=== PATIENT | male | born 1950 | race Hispanic/Latino ===

== ENCOUNTER 2022-02-20 21:52 | Emergency (ER) | payer OTHER ==
[~2022-02-20] VITALS: Ht 167.6 cm; Wt 63.5 kg
[2022-02-20] MEDS ORDERED: DIPHENHYDRAMINE HCL 25 MG CAPSULE PO ONE (23:00)
[2022-02-21] MEDS ORDERED: DiphenhydrAMINE HCL 50 MG/ML VIAL IV STA (02:56)
[2022-02-21] MEDS ORDERED: SOLU-MEDROL 125MG VIAL IVP STA (02:56)
[2022-02-21 06:09] VITALS: BP 127/77
[2022-02-21] MEDS ORDERED: DIPH25 PO (06:53)
== END 2022-02-21 07:08 | disposition home or self-care (01) ==
LOC: EDH 21:52
DX: T63.441A Toxic effect of venom of bees, accidental (unintentional), initial encounter (principal); F10.20 Alcohol dependence, uncomplicated; Z60.2 Problems related to living alone; Y92.89 Other specified places as the place of occurrence of the external cause; Y90.9 Presence of alcohol in blood, level not specified
CPT/HCPCS: 96374; 96375; 99284; J1200; J2930

== ENCOUNTER → 2023-05-13 | Outpatient (CLI) | payer OTHER ==
[~2023-05-13] MED LIST: DIPH-1242 PO
== END | disposition home or self-care (01) ==
LOC: RAH 10:25
PROVIDERS: ATTEND Internal Medicine
DX: K76.89 Other specified diseases of liver (principal)
CPT/HCPCS: 76700

== ENCOUNTER → 2024-12-21 | Outpatient (CLI) | payer OTHER ==
--- NOTE | 2024-12-21 17:14 | HMCIMG ---
LUMBAR SPINE 2-3VWS HISTORY: Status post fall COMPARISON: None FINDINGS: 3 images of lumbar spine were obtained. There is levoscoliosis of lumbar spine versus poor positioning. Grade 1 anterolisthesis is seen at the L5-S1 level. There may be bilateral L5 pars defects. There is straightening of normal lordotic curvature which may be related to muscle spasm or positioning. No loss of vertebral height is seen. No fracture or dislocation is seen. Degenerative changes are seen. IMPRESSION: 1. Findings as described above.
--- NOTE | 2024-12-21 17:14 | HMCIMG ---
THORACIC SPINE 3VWS HISTORY: Status post fall COMPARISON: None FINDINGS: 3 images of the thoracic spine were obtained. There is scoliosis. There is straightening of normal lordotic curvature which may be related to muscle spasm or positioning. No loss of vertebral height is seen. No fracture or dislocation is seen. Degenerative changes are seen. IMPRESSION: 1. No fracture is seen. Scoliosis. Degenerative changes.
--- NOTE | 2024-12-21 19:11 | HMCIMG ---
RIBS UNI RT W PA CHEST 3+ VWS REASON: Fall injury, pain to RT posterior rib cage. COMPARISON: None TECHNIQUE: Frontal projection of the chest was obtained. 3 images of the right ribs were obtained. FINDINGS: No acute pulmonary infiltrates is seen. The heart is not enlarged. No acute displaced fracture is seen. IMPRESSION: Findings as discussed above.
== END | disposition home or self-care (01) ==
LOC: RAH 15:02
PROVIDERS: ATTEND Internal Medicine
DX: S30.0XXA Contusion of lower back and pelvis, initial encounter (principal); M47.814 Spondylosis without myelopathy or radiculopathy, thoracic region; M47.816 Spondylosis without myelopathy or radiculopathy, lumbar region; M43.17 Spondylolisthesis, lumbosacral region; M41.86 Other forms of scoliosis, lumbar region; M41.84 Other forms of scoliosis, thoracic region; M54.50 Low back pain, unspecified; R07.81 Pleurodynia; X58.XXXA Exposure to other specified factors, initial encounter; Y93.89 Activity, other specified; Y92.89 Other specified places as the place of occurrence of the external cause; Y99.8 Other external cause status
CPT/HCPCS: 71101; 72072; 72100

== ENCOUNTER → 2025-02-09 | Outpatient (CLI) | payer OTHER, MEDICARE ==
--- NOTE | 2025-02-10 12:44 | HMCIMG ---
NM GASTRIC EMPTYING STUDY REASON: EARLY SATIETY, NAUSEAM ABD DISTENSION. COMPARISON: None TECHNIQUE: Nuclear gastric emptying study was performed with 1.5 mCi of technetium sulfa colloid with scrambled eggs through oral route. FINDINGS: T half of gastric emptying is 39 minutes. IMPRESSION: Normal gastric emptying with T half of 39 minutes.
== END | disposition home or self-care (01) ==
LOC: RAH 10:21
PROVIDERS: ATTEND Internal Medicine Gastroenterology
DX: K29.40 Chronic atrophic gastritis without bleeding (principal); R68.81 Early satiety; R11.0 Nausea; R14.0 Abdominal distension (gaseous); Z79.899 Other long term (current) drug therapy
CPT/HCPCS: 78264; 82607; 82746; 36415; A9541

== ENCOUNTER 2025-02-24 21:56 | Observation (INO) | payer OTHER, MEDICARE ==
[~2025-02-24] VITALS: Ht 152.4 cm; Wt 55.0 kg
[2025-02-24] MEDS: OCTYL 2-CYANOACRYLATE 1 EACH TP ONE
[2025-02-24] MEDS: teTANUS/diphthERIA TOXOID [ADULT] 0.5 ML VIAL IM ONE (22:45)
[2025-02-24] MEDS: LIDOCAINE HCL 1% 20 ML VIAL INJ ONE (23:12)
--- NOTE | 2025-02-24 23:18 | NUR ---
Lily lozaradha in ED - 02/24/25 at 2345 by LOUISE LIDOCAINE ADMINISTERED FOR DIGITAL BLOCK TO R [address] RD FINGER BY IFEOMA JEFFERSON. FINGER REDUCED AND SUTURES APPLIED BY IFEOMA JEFFERSON. PATIENT TOLERATED PROCEDURES WELL. LACERATION COVERED WITH NONADHERENT GAUZE FINGER SPLINT APPLIED AND WRAPPED WITH KERLIX
--- NOTE | 2025-02-24 23:45 | NUR ---
LIDOCAINE ADMINISTERED TO R 3RD FINGER BY IFEOMA JEFFERSON FOR REDUCTION OF FINGER DISLOCATION. PATIENT TOLERATED WELL. FINGER COVERED WITH NONADHERENT GAUZE, FINGER SPLINT APPLIED, VOLAR SPLINT APPLIED. PATIENT TOLERATED WELL
[2025-02-24] MEDS: ceFAZolin SODIUM 2 GM VIAL IVPB ONE (23:53)
[2025-02-25] VITALS (31 sets, daily range): BP systolic 111–162; BP diastolic 69–92; PULSE 60–107; RESP 15–21; TEMP 97.1–98.7; O2SAT 96
[2025-02-25] MEDS: OCTYL 2-CYANOACRYLATE 1 EACH TP ONE (00:15)
[2025-02-25 00:16] LABS: CREATININE 0.6 mg/dL (0.5-1.3); POTASSIUM 3.8 mmol/L (3.5-5.1)
[2025-02-25 00:44] LABS: BASOPHILS # (AUTO) 0.03 K/uL (0.00-0.20); BASOPHILS % (AUTO) 0.5 % (0.0-5.0); EOSINOPHILS # (AUTO) 0.08 K/uL (0.00-0.70); EOSINOPHILS % (AUTO) 1.3 % (0.0-8.0); HEMATOCRIT 39.2 % (42-54); IMMATURE GRANULOCYTE ABSOLUTE 0.01 K/uL (0-1); LYMPHOCYTES # (AUTO) 0.9 K/uL (1.0-4.8); MEAN CORPUSCULAR HEMOGLOBIN 30.8 pg (27.0-33.0); MEAN CORPUSCULAR HGB CONC 33.7 g/dL (32.0-36.0); MEAN CORPUSCULAR VOLUME 91.4 fL (79-99); MONOCYTES # (AUTO) 0.4 K/uL (0.1-1.0); MONOCYTES % (AUTO) 6.9 % (3.0-13.0); NEUTROPHILS # (AUTO) 4.7 K/uL (1.8-7.7); NEUTROPHILS % (AUTO) 76.1 % (40.0-77.0); PLATELET COUNT (AUTO) 259 K/uL (130-400); RED BLOOD CELL COUNT(AUTO) 4.29 MIL/uL (4.50-6.20); RED CELL DISTRIBUTION WIDTH 12.9 % (11.0-15.5); WHITE BLOOD COUNT (AUTO) 6.2 K/uL (4.8-10.8)
--- NOTE | 2025-02-25 00:46 | ERN ---
General Chief Complaint: Finger Injury Stated Complaint: RIGHT FINGER INJURY Time Seen by MD: 22:00 Time Seen by Midlevel: 22:00 Source: patient History of Present Illness Initial Comments Is a 74-year-old male presenting to the emergency department for evaluation following a right 2nd digit injury. The patient states he was working on a car when the fan accidentally cut his right 2nd digit. Patient immediately reported to the ER for further evaluation. Patient is not up-to-date with tetanus vaccination. Allergies: Coded Allergies: No Known Drug Allergies (Unverified Allergy, Unknown, 06/13/23) Home Meds Active Scripts Diphenhydramine HCl (Benadryl) 25 Mg Cap, 25 MG PO QIDP for 10 Days, #40 CAP Prov:ELVIS PALACIOS MD 02/21/22 Past Medical History Past Medical History: Hypertension, Prostatitis, Other Medical History Other: THYROID DISEASE Past Surgical History: Appendectomy, Other Surgical History Other: HERNIA REPAIR Social History Social History: ETOH, Lives alone ROS Dictation CONSTITUTIONAL: Negative except for HPI HEAD/FACE: Negative except for HPI EENT: Negative except for HPI RESPIRATORY: Negative except for HPI GASTROINTESTINAL/ABDOMINAL: Negative except for HPI GENITOURINARY: Negative except for HPI MUSCULOSKELETAL: Negative except for HPI INTEGUMENTARY: Negative except for HPI NEUROLOGICAL/PSYCH: Negative except for HPI HEMATOLOGIC/LYMPHATIC: Negative except for HPI All Systems Negative, Except as noted above. 13 point review of systems assessed and all negative except for above. Physical Exam Physical Exam Dictation PHYSICAL EXAM: GENERAL: alert,, awake oriented x 3 HEENT: EOMI, Sclera non icteric, moist mucosa NECK: Supple, no JVD, trachea midline LUNGS: Clear breath sounds bilaterally. No wheezes HEART: Regular rate and rhythm. Normal S1 and S2, without murmurs ABD: Abdomen soft, nontender. Bowel sounds present EXT: There was a laceration to the right 2nd digit overlying the PIP joint, there is dislocation of the PIP joint with joint exposure NEURO: Alert and oriented to person, follows commands Results Laboratory and Microbiology Lab and Micro Result Laboratory Tests Test 02/24/25 00:02 Sodium Level 138 mmol/L (136-145) Potassium Level 3.8 mmol/L (3.5-5.1) Chloride Level 103 mmol/L (101-111) Carbon Dioxide Level 27 mmol/L (21-32) Blood Urea Nitrogen 11 mg/dL (7-18) Creatinine 0.6 mg/dL (0.5-1.3) Glomerular Filtration Rate Calc 101 mL/min (>90) Random Glucose 89 mg/dL (70-105) Total Calcium 9.1 mg/dL (8.5-10.1) Labs Reviewed?: Yes MDM MDM: Is a 74-year-old male presenting to the emergency department for evaluation following a right 2nd digit injury. The patient states he was working on a car when the fan accidentally cut his right 2nd digit. Patient immediately reported to the ER for further evaluation. Patient is not up-to-date with tetanus vaccination. On physical examination there was an open dislocation of the right 2nd digit at the PIP joint, the distal digit is flexed at a 90 degree angle. An x-ray was performed which reveals a dislocation of the right PIP joint of the right 2nd digit. The area was anesthetized with 1% lidocaine without epi. The digit was reduced and a repeat x-ray was performed which showed normal alignment but revealed an underlying avulsion fracture of the PIP joint. Orthopedic surgery was consulted and recommends admission for surgery in the morning. Wants patient NPO after midnight. Differential diagnosis: Open fracture, tendon laceration, finger dislocation Rationale: Tests considered and ordered secondary to shared decision making include: Previous outside records reviewed: Old ER visits. Risk of complication and/or morbidity or mortality of patient management: None Medications-Per medication reconciliation Need for hospitalization: Patient does meet criteria for hospitalization. Need for emergency major/minor surgery: No There are no social concerns with this patient. Prescription drug management Prescriptions will include symptomatic care Patient's prior external medical records from other ER visits were reviewed by me as indicated. Prior testing and results from previous visits were reviewed. Prior tests were taken into account with medical decision making and resource utilization, independent historian/historians were used to obtain complete medical history. I independently interpreted the test that were performed, results were reviewed by me and considered findings on radiology if ordered. Medical management and examination interpretation discussions were had by me with other qualified healthcare professionals as indicated for the patient's care. ED Course Orders Procedure Category Date Status Time Tetanus,Diphtheria PHA 02/24/25 Complete Tox [Adult] (Diphther 22:30 Finger(S) 2+Vws Rt RAD 02/24/25 Taken 22:02 Laceration Tray Set CPOE 02/24/25 Transmitted Up (Er) 22:57 Lidocaine Hcl 1% 20ml PHA 02/24/25 Complete Vial (Lidocaine Hc 23:00 Finger(S) 2+Vws Rt RAD 02/24/25 Taken 23:23 Dermabond (Dermabond) PHA 02/24/25 Complete 00:00 Cbc With Differential LAB 02/24/25 In Process 23:45 Basic Metabolic Panel LAB 02/24/25 Complete 23:45 Cefazolin Sodium PHA 02/25/25 Complete (Ancef) 00:01 Orthopedic Surgery CONPHYSVC 02/24/25 Transmitted Consult 23:45 Npo After Midnight CARLA 02/24/25 Transmitted 23:45 Dermabond (Dermabond) PHA 02/25/25 In Process 00:30 Current Medications Medications (Trade) Dose Ordered Sig/Patrica Route PRN Reason Start Time Stop Time Status Last Admin Dose Admin Cefazolin Sodium (Ancef) 2 gm ONCE ONCE IVPB 02/25/25 00:01 02/25/25 00:02 DC 02/24/25 23:53 Lidocaine HCl (Lidocaine HCl 1% 20ml Vial) ONCE ONCE INJ 02/24/25 23:00 02/24/25 23:01 DC Octyl Cyanoacrylate (Dermabond) 1 each ONCE ONCE TP 02/24/25 00:00 02/24/25 23:47 DC Octyl Cyanoacrylate (Dermabond) 1 each ONCE ONCE TP 02/25/25 00:30 02/25/25 00:31 02/25/25 00:15 Tetanus/ Diphtheria Toxoids Adsorbed (DiphthERIA-teTANUS TOXOID [ADULT]/ DECAVAC) 0.5 ml ONCE ONCE IM 02/24/25 22:30 02/24/25 22:31 DC 02/24/25 22:45 Vital Signs Date Time Temp Pulse Resp B/P (MAP) Pulse Ox O2 Delivery O2 Flow Rate FiO2 02/24/25 21:58 98.4 69 18 126/77 97 Room Air 0 DX & DISP Disposition: Inpatient Decision to Admit Date: Feb 25, 2025 Decision to Admit Time: 00:46 Departure Impression: Primary Impression: Extensor tendon laceration of right hand with open wound Condition: Stable Referrals: LETICIA DISLA MD (PCP) I have reviewed the case, and I agree with, Diagnosis and Plan I performed the substantive portion of the visit. I have reviewed and personally made and approve the management plan that is documented in the note by myself or the HIGINIO. I acknowledge for responsibility for the patient's management plan. JOSE MARTINS Feb 25, 2025 00:46
[2025-02-25] MEDS: morPHINE 2 MG SYG IVP ONE (01:58)
[2025-02-25] MEDS ORDERED: ondanSETRON 4MG INJ IV PRN (05:00)
[2025-02-25 07:41] LABS: BASOPHILS # (AUTO) 0.05 K/uL (0.00-0.20); BASOPHILS % (AUTO) 0.7 % (0.0-5.0); EOSINOPHILS # (AUTO) 0.09 K/uL (0.00-0.70); EOSINOPHILS % (AUTO) 1.2 % (0.0-8.0); HEMATOCRIT 38.7 % (42-54); IMMATURE GRANULOCYTE ABSOLUTE 0.03 K/uL (0-1); LYMPHOCYTES # (AUTO) 1.2 K/uL (1.0-4.8); LYMPHOCYTES % (AUTO) 15.9 % (21.0-51.0); MEAN CORPUSCULAR HEMOGLOBIN 30.8 pg (27.0-33.0); MEAN CORPUSCULAR HGB CONC 34.1 g/dL (32.0-36.0); MEAN CORPUSCULAR VOLUME 90.4 fL (79-99); MONOCYTES # (AUTO) 0.6 K/uL (0.1-1.0); MONOCYTES % (AUTO) 7.5 % (3.0-13.0); NEUTROPHILS # (AUTO) 5.6 K/uL (1.8-7.7); NEUTROPHILS % (AUTO) 74.3 % (40.0-77.0); PLATELET COUNT (AUTO) 232 K/uL (130-400); RED BLOOD CELL COUNT(AUTO) 4.28 MIL/uL (4.50-6.20); RED CELL DISTRIBUTION WIDTH 12.9 % (11.0-15.5); WHITE BLOOD COUNT (AUTO) 7.6 K/uL (4.8-10.8)
[2025-02-25 07:50] LABS: INR 1.01 (0.85-1.15); PROTHROMBIN TIME 10.7 SEC (9.6-11.6)
[2025-02-25 07:51] LABS: PARTIAL THROMBOPLASTIN TIME 30.2 SEC (26.3-35.5)
[2025-02-25 07:53] LABS: ALBUMIN 3.6 g/dL (3.5-5.0); BILIRUBIN,TOTAL 0.6 mg/dL (0.2-1.0); CREATININE 0.6 mg/dL (0.5-1.3); MAGNESIUM 1.9 mg/dL (1.80-2.40); TOTAL PROTEIN, SERUM 6.9 g/dL (6.0-8.3)
[2025-02-25] MEDS ORDERED: PoTASSium chloRIDE 20MEQ/100ML 100 ML IV PRN (08:30)
[2025-02-25] MEDS ORDERED: LACTULOSE 20 GM/30 ML UDCUP PO PRN (08:30)
[2025-02-25] MEDS ORDERED: PoTASSium chloRIDE 10MEQ/100ML 100 ML IV PRN (08:30)
[2025-02-25] MEDS ORDERED: hydrALAZine 20MG/ML VIAL IV PRN (08:30)
[2025-02-25] MEDS ORDERED: PoTASSium chl 10% ELIXIR 20MEQ 20 MEQ/15 ML UDCUP PO PRN (08:30)
[2025-02-25] MEDS ORDERED: PoTASSium chloRIDE 20MEQ ER 20 MEQ ERTAB PO PRN (08:30)
[2025-02-25] MEDS ORDERED: acetaMINOPHEN 325 MG TAB PO PRN (08:30)
--- NOTE | 2025-02-25 08:38 | HP ---
[facility] HISTORY AND PHYSICAL Date of Service: Feb 25, 2025 Time of Service: 08:27 HISTORY OF PRESENT ILLNESS: [ ] Admission date: PCP: Prateek Shore MD chief complaint: right finger injury This is a 74-year-old male that presents in ER with chief complaints of right finger pain secondary to injury. Apparently patient was fixing his automobile when his finger accidently tonch the car fan and cut his finger. He came straight to ER for evaluation and treatment. X-rays were done dislocation of the right PIP and avulsion fracture of the PIP joint. POA Vice President Payer was notified by ER physician we will see patient later on today patient is kept NPO patient received a dose of tetanus in Ancef IV The patient was seen in room 425 : Fully awake alert oriented x3. patient has a finger splint. No drainage noted on trend we will wait for surgeon recommendations patient denied chest pain or shortness for breath REVIEW OF SYSTEMS CONSTITUTIONAL: Denies fevers, chills, or night sweats. No unintentional weight loss reported. NEUROLOGICAL: Denies headache, amaurosis fugax, motor weakness, sensory deficit, vertigo/spinning sensation, gait abnormalities, or tremors. ENT: No hearing loss, otalgia, otorrhea, rhinitis, rhinorrhea, hoarseness, or sore throat. CARDIOVASCULAR: Denies any exertional angina, dyspnea on exertion, orthopnea, paroxysmal nocturnal dyspnea, palpitations, life-threatening arrhythmias, claudication. PULMONARY: Denies any shortness of breath, cough, phlegm/sputum, hemoptysis, pleuritic chest pain. SLEEP: Denies morning headaches, daytime somnolence or napping. Denies difficul ty falling asleep, staying asleep, waking from sleep. Denies knowledge of snoring. GASTROINTESTINAL: Denies any type of dysphagia to either liquids or solids. Denies nausea, vomiting, pyrosis, early satiety, abdominal pain, diarrhea, constipation, or changes in stool consistency or caliber. Denies coffee-ground emesis, hematemesis, hematochezia, or melanotic stools. GENITOURINARY: Denies frequency, urgency, nocturia, hematuria or incontinence (Storage/Irritative symptoms.) Low urinary stream, straining to void, urinary intermittency or hesitancy, splitting of the voiding stream, terminal dribbling. ENDOCRINOLOGIC: Denies polyuria, polydipsia, polyphagia or heat/cold intole rances. HEMATOLOGIC: Denies thrombophilia/previous clots, or coagulopathy/bleeding disorders. ONCOLOGIC: Denies personal history of malignancy. DERMATOLOGIC: Denies rashes or pruritus. PSYCHIATRIC: Denies any suicidal or homicidal ideation. Denies hallucinations. PAST MEDICAL HISTORY: [ ]Hypertension thyroid disease PAST SURGICAL HISTORY: [ ] Hernia repair, appendectomy PAST SOCIAL HISTORY: [ ] Drinks alcohol occasionally lives alone FAMILY HISTORY: [ ] Noncontributory Coded Allergies: No Known Drug Allergies (Unverified Allergy, Unknown, 06/13/23) PHYSICAL EXAM GENERAL APPEARANCE: The patient is awake, alert, and oriented, in no acute cardiopulmonary distress. NEUROLOGICAL: Cranial nerves II-XII grossly intact. Motor is 5/5 in bilateral upper and lower extremities proximal to distal. No sensory deficits. HEENT: Face is symmetric. Pupils are equal and reactive. Extraocular movements are intact. NECK: Supple. No JVD. No thyromegaly. No submental, submandibular, pre- /postauricular, occipital or supraclavicular lymphadenopathy. CHEST: Normal chest expansion. No Telemetry. LUNGS: Absence of any rales, rhonchi or any wheezing. CARDIOVASCULAR: Regular. S1 and S2 normal. No appreciable rubs, murmurs or gallops. ABDOMEN: Soft, nontender, and nondistended. There is no rebound, voluntary guarding, or rigidity. : Deferred. No Beaver. EXTREMITIES: Non-edematous and not cyanotic. No clubbing. Good capillary refill. right hand with splint: second digit with splint. and bulging dressing SKIN: No skin breakdown. Vital Sign (Last 24 Hours) 02/25/25 02/25/25 02/25/25 06:00 06:46 08:22 Temp 98.8 Pulse 74 Resp 16 B/P (MAP) 148/83 Pulse Ox 99 O2 Delivery Room Air O2 Flow Rate 0 FiO2 21 LABS: Laboratory: Test 02/25/25 07:30 Range/Units White Blood Count 7.6 4.8-10.8 K/uL Red Blood Count 4.28 L 4.50-6.20 MIL/uL Hemoglobin 13.2 L 14.0-18.0 g/dL Hematocrit 38.7 L 42-54 % Mean Corpuscular Volume 90.4 79-99 fL Mean Corpuscular Hemoglobin 30.8 27.0-33.0 pg Mean Corpuscular Hemoglobin Concent 34.1 32.0-36.0 g/dL Red Cell Distribution Width 12.9 11.0-15.5 % Platelet Count 232 130-400 K/uL Mean Platelet Volume 9.5 7.5-10.5 fL Immature Granulocyte % (Auto) 0.4 0-1 % Neutrophils (%) (Auto) 74.3 40.0-77.0 % Lymphocytes (%) (Auto) 15.9 L 21.0-51.0 % Monocytes (%) (Auto) 7.5 3.0-13.0 % Eosinophils (%) (Auto) 1.2 0.0-8.0 % Basophils (%) (Auto) 0.7 0.0-5.0 % Neutrophils # (Auto) 5.6 1.8-7.7 K/uL Lymphocytes # (Auto) 1.2 1.0-4.8 K/uL Monocytes # (Auto) 0.6 0.1-1.0 K/uL Eosinophils # (Auto) 0.09 0.00-0.70 K/uL Basophils # (Auto) 0.05 0.00-0.20 K/uL Absolute Immature Granulocyte (auto 0.03 0-1 K/uL Nucleated Red Blood Cells 0.0 0.0-0.19 % Prothrombin Time 10.7 9.6-11.6 SEC Prothromb Time International Ratio 1.01 0.85-1.15 Activated Partial Thromboplast Time 30.2 26.3-35.5 SEC Sodium Level 137 136-145 mmol/L Potassium Level 4.0 3.5-5.1 mmol/L Chloride Level 104 101-111 mmol/L Carbon Dioxide Level 28 21-32 mmol/L Blood Urea Nitrogen 11 7-18 mg/dL Creatinine 0.6 0.5-1.3 mg/dL Glomerular Filtration Rate Calc 101 >90 mL/min Random Glucose 75 70-105 mg/dL Total Calcium 8.8 8.5-10.1 mg/dL Magnesium Level 1.90 1.80-2.40 mg/dL Total Bilirubin 0.6 0.2-1.0 mg/dL Aspartate Amino Transf (AST/SGOT) 16 10-37 U/L Alanine Aminotransferase (ALT/SGPT) 19 12-78 U/L Alkaline Phosphatase 63 50-136 U/L Total Protein 6.9 6.0-8.3 g/dL Albumin 3.6 3.5-5.0 g/dL Current Medications Medications (Trade) Dose Ordered Sig/Patrica Route PRN Reason Start Time Stop Time Status Last Admin Dose Admin Cefazolin Sodium (ANCEF 1 gm vial) 1 gm BID IVPB 02/25/25 09:00 03/07/25 08:59 Cefazolin Sodium 1 gm/Sodium Chloride 50 ml @ 100 mls/hr BID IV 02/25/25 09:00 02/25/25 05:08 DC Famotidine (Pepcid 20mg Vial) 20 mg BID IV 02/25/25 09:00 03/27/25 08:59 Ondansetron HCl (zoFRAN 4MG INJ) 4 mg Q6H PRN IV NAUSEA/VOMITING 02/25/25 05:00 03/27/25 04:59 DIAGNOSTICS / RADIOLOGY: [ ] ASSESSMENT: Right finger injury POA laceration finger 2nd digit POA dislocation of the right PIP joint of the right 2nd digit. POA right 2nd digit avulsion fracture of the PIP joint. POA PLAN: [ ] Admit: Medical-surgical floor condition: Fair Status: Full code IVF: NS at 75 mL/hour Consultants orthopedic surgery Diet NPO Antibiotics: Cefazolin1 g twice a day procedure: possible surgery today: right 2nd digit: dislocation of the right PIP joint avulsion fracture of the PIP joint. POA Labs cbc, cmp, mag+ Replace electrolytes as needed as per protocol to keep potassium above 4.0 magnesium 2.0. Home medications pending to be reviewed by RN nurse. PRN: MEDICATIONS Tylenol 650 mg po every 4 hrs for fever zofran 4 mg IV every 6 hrs for n/v Hydralazine 5 mg IV every 4 hrs systolic pressure > 160 bowel regiment: lactulose 20 gm PO BID PRN constipation Pain management: Morphine 2 mg every hours as needed Supportive measures: DVT ppx, GI ppx all questions answered time spent: > 35 min Supervising MD: Dr. Shanks c/d This document was generated in part using voice recognition software, occasional wrong word or sound alike substitutions may have occurred due to the inherent limitations of voice recognition software. Read the chart carefully and recognize using context, where the substitutions have occurred. Although every effort was made to edit the content, long distance operator and typing errors may occur ADVANCED CARE PLANNING 1. Which of the following were discussed? Hospice Care - Yes / No Therapeutic options - Yes / No Advance Directives - Yes / No Other discussions - 2. Discussed with who? 3. Voluntary nature of this service was explained to the patient? Yes / No 4. Amount of time spent - 5. Reviewed by Physician? (if this service was performed by NPP) Yes / No ATTESTATION BY PHYSICIAN I have seen and examined the patient. I reviewed the documentation, medical decision making, and treatment plan as noted by the mid-level provider above. I agree with the findings and plan of care. ROQUE SHANKS MD, ELIZABETH NP Feb 25, 2025 08:38
--- NOTE | 2025-02-25 08:52 | HMCIMG ---
Exam Type: FINGER(S) 2+VWS RT Clinical Information: Right 2nd digit post reduction Comparison: None Findings and impression: Again, there is a mild fracture involving the middle phalanx of the second digit, displaced and intra-articular. The previously seen PIP joint dislocation has been adequately reduced and no other interval changes are seen.
[2025-02-25] MEDS ORDERED: CEFAZOLIN SODIUM IV SCH (09:00)
[2025-02-25] MEDS ORDERED: [UNRECOGNIZED DRUG - OTHER] IV SCH (09:00)
[2025-02-25] MEDS: ceFAZolin SODIUM 1 GM VIAL IVPB SCH (09:03)
[2025-02-25] MEDS: FAMOTIDINE 20MG VIAL IV SCH (09:03)
--- NOTE | 2025-02-25 09:14 | HMCIMG ---
FINGER(S) 2+VWS RT INDICATION: INJURY TO 2ND FINGER, PAIN, LACERATION TECHNIQUE: FINGER(S) 2+VWS RT. FINDINGS AND IMPRESSION: Fracture of the distal aspect of the proximal phalanx of the second digit with anterior dislocation of the second PIP joint. There is diffuse soft tissue swelling with soft tissue laceration. No radiopaque foreign body is identified. There is diffuse osteopenia limiting evaluation of the study.
[2025-02-25] MEDS: hydroMORPHone 0.5 MG SYG (0.5MG/0.5ML) IVP PRN (12:04)
[2025-02-25] MEDS: ondanSETRON 4MG INJ IVP PRN (13:06)
[2025-02-25] MEDS ORDERED: rocuRONium bROMide 10MG/1ML 5ML VL ONE (13:35)
[2025-02-25] MEDS ORDERED: FENTanyl CITRate PF 50 MCG/1 ML 2ML VIAL ONE ×3 (13:35→15:36)
[2025-02-25] MEDS ORDERED: proPOFol 10 MG/ML 20ML VIAL IV ONE ×2 (13:35→15:55)
[2025-02-25] MEDS ORDERED: MIDAZOLAM HCL 1 MG/ML 2ML VIAL ONE (13:35)
[2025-02-25] MEDS ORDERED: ondanSETRON 4MG INJ ONE ×2 (13:49→14:11)
[2025-02-25] MEDS ORDERED: phenylEPHRINE HCL 10 MG/ML 1ML VIAL IV ONE (13:49)
[2025-02-25] MEDS ORDERED: SUCCINYLCHOLINE CHLORIDE 20 MG/ML 10 ML VIAL ONE (14:15)
[2025-02-25] MEDS: BUPIvacaine/PF 0.5% 10ML VIAL IJ ONE (15:20)
[2025-02-25] MEDS ORDERED: BUPIvacaine/PF 0.25% 10ML VIAL IJ ONE (15:21)
[2025-02-25] MEDS ORDERED: BUPIvacaine/PF 0.25% 30ML VIAL IJ ONE (15:22)
[2025-02-25] MEDS ORDERED: GLYCOPYRROLATE 0.2 MG/ML 5 ML VIAL ONE (15:35)
[2025-02-25] MEDS ORDERED: NEOSTIGMINE METHYLSULFATE 1MG/ML IV ONE (15:36)
--- NOTE | 2025-02-25 16:04 | HMCIMG ---
Fluoroscopic guidance History: ORIF RT 2nd Phalanx avulsion FX Fluoroscopic guidance provided. Procedure by ordering physician in operating room suite with fluoroscopic guidance. Several spot images were obtained. Impression: Fluoroscopic guidance.
[2025-02-25] MEDS ORDERED: Solu-medROL 40MG VIAL ONE (16:05)
[2025-02-25] MEDS: RACEPINEPHRINE HCL 2.25% 0.5 ML NEB SOLN NEB ONE (16:07)
[2025-02-25 16:26] LABS: ABG BASE EXCESS -8.2 mmol/L (-2.0-3.0); ABG HCO3 19.9 mmol/L (21.0-28.0); ABG OXYGEN SATURATION 96.8 % (94.0-98.0); ABG PCO2 51 mmHg (35-48); ABG PH 7.208 (7.350-7.450); CARBON MONOXIDE 1.1 % (0.5-1.5); HHb 3.2; VENT MODE, BG AFM (ROOM AIR)
[2025-02-26 04:00] VITALS: BP 124/76; PULSE 72; RESP 17; TEMP 97.4
[2025-02-26 04:45] LABS: BASOPHILS # (AUTO) 0.01 K/uL (0.00-0.20); BASOPHILS % (AUTO) 0.1 % (0.0-5.0); HEMATOCRIT 37.4 % (42-54); IMMATURE GRANULOCYTE ABSOLUTE 0.03 K/uL (0-1); LYMPHOCYTES # (AUTO) 0.4 K/uL (1.0-4.8); LYMPHOCYTES % (AUTO) 4.1 % (21.0-51.0); MEAN CORPUSCULAR HEMOGLOBIN 30.5 pg (27.0-33.0); MEAN CORPUSCULAR HGB CONC 33.2 g/dL (32.0-36.0); MEAN CORPUSCULAR VOLUME 91.9 fL (79-99); MONOCYTES # (AUTO) 0.4 K/uL (0.1-1.0); MONOCYTES % (AUTO) 4.6 % (3.0-13.0); NEUTROPHILS # (AUTO) 7.7 K/uL (1.8-7.7); NEUTROPHILS % (AUTO) 90.8 % (40.0-77.0); PLATELET COUNT (AUTO) 199 K/uL (130-400); RED BLOOD CELL COUNT(AUTO) 4.07 MIL/uL (4.50-6.20); RED CELL DISTRIBUTION WIDTH 12.7 % (11.0-15.5); WHITE BLOOD COUNT (AUTO) 8.5 K/uL (4.8-10.8)
[2025-02-26 05:16] LABS: ALBUMIN 3.1 g/dL (3.5-5.0); BILIRUBIN,TOTAL 0.6 mg/dL (0.2-1.0); CREATININE 0.8 mg/dL (0.5-1.3); MAGNESIUM 1.9 mg/dL (1.80-2.40); POTASSIUM 4.1 mmol/L (3.5-5.1); TOTAL PROTEIN, SERUM 6.2 g/dL (6.0-8.3)
[2025-02-26 08:29] VITALS: BP 133/79; PULSE 63; RESP 16; TEMP 98
[2025-02-26 09:39] VITALS: O2SAT 95
[2025-02-26] MEDS: MAGNESIUM 2GM PREMIX 50ML 50 ML IV PRN (09:39)
[2025-02-26] MEDS: acetaMINOPHEN WITH coDEINE 1 TAB TAB PO PRN (09:51)
[2025-02-26] MEDS ORDERED: BENZOCAINE/MENTH/CETYLPYRD CL 1 EACH LOZENGE MM PRN (10:30)
[2025-02-26] MEDS ORDERED: ACET-2079 PO (10:47)
--- NOTE | 2025-02-26 11:06 | DS ---
Discharge Summary Hospital Course Summary: Admission date: PCP: Prateek Shore MD chief complaint: right finger injury This is a 74-year-old male that presents in ER with chief complaints of right finger pain secondary to injury. Apparently patient was fixing his automobile when his finger accidently tonch the car fan and cut his finger. He came straight to ER for evaluation and treatment. X-rays were done dislocation of the right PIP and avulsion fracture of the PIP joint. POA Nut Feeder was notified by ER physician we will see patient later on today patient is kept NPO patient received a dose of tetanus in Ancef IV 02/26/25 POD 1 exploration of wound open treatment of open fracture and tendon repair. Repair having pain to surgical site. Waiting for surgeon on clearance for discharged. instructed no weight bearing to right arm. pulse present. Patient is hemodynamically stable for discharge. Procedure(s): REASON: Right 2nd digit post reduction ORDERING PHYSICIAN: JOSE MARTINS PROCEDURE: FINGER RT - FINGER(S) 2+VWS RT Exam Type: FINGER(S) 2+VWS RT Clinical Information: Right 2nd digit post reduction Comparison: None Findings and impression: Again, there is a mild fracture involving the middle phalanx of the second digit, displaced and intra-articular. The previously seen PIP joint dislocation has been adequately reduced and no other interval changes are seen. REASON: INJURY TO 2ND FINGER, PAIN, LACERATION ORDERING PHYSICIAN: STERLING FRAZIER MD PROCEDURE: FINGER RT - FINGER(S) 2+VWS RT FINGER(S) 2+VWS RT INDICATION: INJURY TO 2ND FINGER, PAIN, LACERATION TECHNIQUE: FINGER(S) 2+VWS RT. FINDINGS AND IMPRESSION: Fracture of the distal aspect of the proximal phalanx of the second digit with anterior dislocation of the second PIP joint. There is diffuse soft tissue swelling with soft tissue laceration. No radiopaque foreign body is identified. There is diffuse osteopenia limiting evaluation of the study. Assessment/Plan: Discharged dx's; Right finger injury POA laceration finger 2nd digit POA dislocation of the right PIP joint of the right 2nd digit. POA s/p 02/25/25 exploration of wound open treatment of open fracture and tendon repair. right 2nd digit avulsion fracture of the PIP joint. POA PLAN: [ ] ADMISSION DATE: 02/24/25 DISCHARGE DATE: 02/26/25 DISPOSITION: home CONDITION: stable PHYSICAL THERAPY ASSISTANT INSTRUCTOR(S): DR Munoz FOLLOW UP APPOINTMENT(S): dr Munoz one wk PROCEDURES: exploration of wound open treatment of open fracture and tendon repair. IMAGING (S) report attached to summary : MICROBIOLOGY: report attached to summary; ACTIVITY: HOME MEDICATIONS CHANGES ON HOME MEDICATIONS NEW MEDICATIONS TEACHING: Emergency instructions: The patient was instructed to present to the nearest Emergency Department or call 911 should their symptoms return or worsen. Home Medications: Active Scripts Acetaminophen with Codeine (Acetaminophen-Cod #3 Tablet) 300 Mg-30 Mg Tablet, 1 TAB PO Q6HPRN PRN for pain for 7 Days, #10 TAB 0 Refills Prov:LANIE CRUZ NP 02/26/25 Diphenhydramine HCl (Benadryl) 25 Mg Cap, 25 MG PO QIDP for 10 Days, #40 CAP Prov:ELVIS PALACIOS MD 02/21/22 New Medications: Acetaminophen with Codeine (Acetaminophen-Cod #3 Tablet) 300 Mg-30 Mg Tablet 1 TAB PO Q6HPRN PRN for pain for 7 Days, #10 TAB 0 Refills Amoxicillin (Amoxicillin) 500 Mg Tablet 1 TAB PO BID for 10 Days, #20 TAB 0 Refills Continued Medications: Diphenhydramine HCl (Benadryl) 25 Mg Cap 25 MG PO QIDP for 10 Days, #40 CAP Time spent arranging discharge: 31-60 minutes ATTESTATION BY PHYSICIAN I have seen and examined the patient. I reviewed the documentation, medical decision making, and treatment plan as noted by the mid-level provider above. I agree with the findings and plan of care. ROQUE SHANKS MD, ELIZABETH NP Feb 26, 2025 11:06
--- NOTE | 2025-02-26 11:14 | PN ---
[facility] PROGRESS NOTE Date of Service: Feb 26, 2025 Time of Service: 11:09 SUBJECTIVE: [ ] Admission date: PCP: Prateek Shore MD chief complaint: right finger injury This is a 74-year-old male that presents in ER with chief complaints of right finger pain secondary to injury. Apparently patient was fixing his automobile when his finger accidently tonch the car fan and cut his finger. He came straight to ER for evaluation and treatment. X-rays were done dislocation of the right PIP and avulsion fracture of the PIP joint. POA Chairman was notified by ER physician we will see patient later on today patient is kept NPO patient received a dose of tetanus in Ancef IV 02/26/25 POD 1 exploration of wound open treatment of open fracture and tendon r epair. Repair having pain to surgical site. Waiting for surgeon on clearance for discharged. instructed no weight bearing to right arm. pulse present. REVIEW OF SYSTEMS CONSTITUTIONAL: Denies fevers, chills, or night sweats. No unintentional weight loss reported. NEUROLOGICAL: Denies headache, amaurosis fugax, motor weakness, sensory deficit, vertigo/spinning sensation, gait abnormalities, or tremors. ENT: No hearing loss, otalgia, otorrhea, rhinitis, rhinorrhea, hoarseness, or sore throat. CARDIOVASCULAR: Denies any exertional angina, dyspnea on exertion, orthopnea, paroxysmal nocturnal dyspnea, palpitations, life-threatening arrhythmias, claudication. PULMONARY: Denies any shortness of breath, cough, phlegm/sputum, hemoptysis, pleuritic chest pain. SLEEP: Denies morning headaches, daytime somnolence or napping. Denies difficulty falling asleep, staying asleep, waking from sleep. Denies knowledge of snoring. GASTROINTESTINAL: Denies any type of dysphagia to either liquids or solids. Denies nausea, vomiting, pyrosis, early satiety, abdominal pain, diarrhea, constipation, or changes in stool consistency or caliber. Denies coffee-ground emesis, hematemesis, hematochezia, or melanotic stools. GENITOURINARY: Denies frequency, urgency, nocturia, hematuria or incontinence (Storage/Irritative symptoms.) Low urinary stream, straining to void, urinary intermittency or hesitancy, splitting of the voiding stream, terminal dribbling. ENDOCRINOLOGIC: Denies polyuria, polydipsia, polyphagia or heat/cold intolerances. HEMATOLOGIC: Denies thrombophilia/previous clots, or coagulopathy/bleeding disorders. ONCOLOGIC: Denies personal history of malignancy. DERMATOLOGIC: Denies rashes or pruritus. PSYCHIATRIC: Denies any suicidal or homicidal ideation. Denies hallucinations. PHYSICAL EXAM GENERAL APPEARANCE: The patient is awake, alert, and oriented, in no acute cardiopulmonary distress. NEUROLOGICAL: Cranial nerves II-XII grossly intact. Motor is 5/5 in bilateral upper and lower extremities proximal to distal. No sensory deficits. HEENT: Face is symmetric. Pupils are equal and reactive. Extraocular movements are intact. NECK: Supple. No JVD. No thyromegaly. No submental, submandibular, pre- /postauricular, occipital or supraclavicular lymphadenopathy. CHEST: Normal chest expansion. No Telemetry. LUNGS: Absence of any rales, rhonchi or any wheezing. CARDIOVASCULAR: Regular. S1 and S2 normal. No appreciable rubs, murmurs or gallops. ABDOMEN: Soft, nontender, and nondistended. There is no rebound, voluntary guarding, or rigidity. : Deferred. No Beaver. EXTREMITIES: Non-edematous and not cyanotic. No clubbing. Good capillary refill. right hand with splint: second digit with splint. and bulging dressing SKIN: No skin breakdown. Vital Signs (last 8hr) Date Time Temp Pulse Resp B/P (MAP) Pulse Ox O2 Delivery O2 Flow Rate FiO2 02/26/25 08:29 98.1 63 16 133/79 95 02/26/25 04:00 97.3 72 17 124/76 93 Room Air LABS: Laboratory: Test 02/26/25 04:26 02/25/25 16:22 02/25/25 07:30 Range/Units White Blood Count 8.5 4.8-10.8 K/uL Red Blood Count 4.07 L 4.50-6.20 MIL/uL Hemoglobin 12.4 L 14.0-18.0 g/dL Hematocrit 37.4 L 42-54 % Mean Corpuscular Volume 91.9 79-99 fL Mean Corpuscular Hemoglobin 30.5 27.0-33.0 pg Mean Corpuscular Hemoglobin Concent 33.2 32.0-36.0 g/dL Red Cell Distribution Width 12.7 11.0-15.5 % Platelet Count 199 130-400 K/uL Mean Platelet Volume 9.9 7.5-10.5 fL Immature Granulocyte % (Auto) 0.4 0-1 % Neutrophils (%) (Auto) 90.8 H 40.0-77.0 % Lymphocytes (%) (Auto) 4.1 L 21.0-51.0 % Monocytes (%) (Auto) 4.6 3.0-13.0 % Eosinophils (%) (Auto) 0.0 0.0-8.0 % Basophils (%) (Auto) 0.1 0.0-5.0 % Neutrophils # (Auto) 7.7 1.8-7.7 K/uL Lymphocytes # (Auto) 0.4 L 1.0-4.8 K/uL Monocytes # (Auto) 0.4 0.1-1.0 K/uL Eosinophils # (Auto) 0.00 0.00-0.70 K/uL Basophils # (Auto) 0.01 0.00-0.20 K/uL Absolute Immature Granulocyte (auto 0.03 0-1 K/uL Nucleated Red Blood Cells 0.0 0.0-0.19 % White Cell Morphology Comment See comments Sodium Level 137 136-145 mmol/L Potassium Level 4.1 3.5-5.1 mmol/L Chloride Level 102 101-111 mmol/L Carbon Dioxide Level 30 21-32 mmol/L Blood Urea Nitrogen 16 7-18 mg/dL Creatinine 0.8 0.5-1.3 mg/dL Glomerular Filtration Rate Calc 92 >90 mL/min Random Glucose 176 #H 70-105 mg/dL Total Calcium 8.4 L 8.5-10.1 mg/dL Magnesium Level 1.90 1.80-2.40 mg/dL Total Bilirubin 0.6 0.2-1.0 mg/dL Aspartate Amino Transf (AST/SGOT) 16 10-37 U/L Alanine Aminotransferase (ALT/SGPT) 18 12-78 U/L Alkaline Phosphatase 61 50-136 U/L Total Protein 6.2 6.0-8.3 g/dL Albumin 3.1 L 3.5-5.0 g/dL Blood Gas Specimen Type Arterial Arterial Blood pH 7.208 L 7.350-7.450 Arterial Blood Partial Pressure CO2 51 H 35-48 mmHg Arterial Blood Partial Pressure O2 100.0 83.0-108.0 mmHg Arterial Blood HCO3 19.9 L 21.0-28.0 mmol/L Arterial Blood Oxygen Saturation 96.8 94.0-98.0 % Arterial Blood Base Excess -8.2 L -2.0-3.0 mmol/L Hemoglobin (Blood Gas) 14.3 13.5-17.5 g/dL Sodium (Blood Gas) 137 136-145 MMOL/L Bedside Potassium (Blood Gas) 4.0 3.4-4.5 MMOL/L Bedside Chloride (Blood Gas) 103 98-107 MMOL/L Bedside Glucose (Blood Gas) 102 H 65-95 MG/DL Bedside Ionized Calcium (Blood Gas) 1.16 1.15-1.33 MMOL/L Bedside Lactic Acid (Blood Gas) 1.34 H 0.36-0.75 MMOL/L Blood Gas Temperature 37.0 35.5-37.0 CELSIUS Blood Gas Flow-by 6.00 0.00-15.00 L/min Blood Gas Vent Mode AFM ROOM AIR FiO2 50.0 % Blood Gas Specimen Comment LR,WALKER-MOLD CLAMPER Prothrombin Time 10.7 9.6-11.6 SEC Prothromb Time International Ratio 1.01 0.85-1.15 Activated Partial Thromboplast Time 30.2 26.3-35.5 SEC Current Medications Medications (Trade) Dose Ordered Sig/Patrica Route PRN Reason Start Time Stop Time Status Last Admin Dose Admin Acetaminophen (TYLenol 325MG TAB) 650 mg Q4H PRN PO TEMPERATURE GREATER THAN 101.5 02/25/25 08:30 03/27/25 08:29 Acetaminophen/ Codeine Phosphate (TYLenol-coDEINE TAB) 1 tab Q6H PRN PO MODERATE PAIN (4-6) 02/25/25 08:30 03/27/25 08:29 02/26/25 09:51 1 TAB Benzocaine (Cepacol Sore Throat Lozenge) 1 each Q4H PRN MM SORE THROAT 02/26/25 10:30 03/28/25 10:29 Cefazolin Sodium (ANCEF 1 gm vial) 1 gm BID IVPB 02/25/25 09:00 03/07/25 08:59 02/26/25 09:39 1 GM Cefazolin Sodium 1 gm/Sodium Chloride 50 ml @ 100 mls/hr BID IV 02/25/25 09:00 02/25/25 05:08 DC Famotidine (Pepcid 20mg Vial) 20 mg BID IV 02/25/25 09:00 03/27/25 08:59 02/26/25 09:39 20 MG Hydralazine HCl (APRESOLine 20MG INJ) 5 mg Q6H PRN IV ADMINISTER FOR SBP > 160 02/25/25 08:30 03/27/25 08:29 Hydromorphone HCl (DiLAUDid 0.5MG INJ) 0.5 mg Q2HPRN PRN IVP SEVERE PAIN (7-10) 02/25/25 12:00 03/02/25 11:59 02/25/25 12:04 0.5 MG Lactulose (Constulose 20gm/ 30ml Udcup) 20 gm BID PRN PO CONSTIPATION 02/25/25 08:30 03/27/25 08:29 Magnesium Sulfate 50 ml @ 0 mls/hr PROTOCOL PRN IV low mag level 02/25/25 08:30 03/27/25 08:29 02/26/25 09:39 25 MLS/HR Ondansetron HCl (zoFRAN 4MG INJ) 4 mg Q6H PRN IV NAUSEA/VOMITING 02/25/25 05:00 02/25/25 08:36 DC Ondansetron HCl (zoFRAN 4MG INJ) 4 mg Q6H PRN IVP NAUSEA/VOMITING 02/25/25 08:30 03/27/25 08:29 02/25/25 13:06 4 MG Potassium Chloride 100 ml @ 50 mls/hr AD PRN IV POTASSIUM PROTOCOL 02/25/25 08:30 03/27/25 08:29 Potassium Chloride 100 ml @ 100 mls/hr AD PRN IV POTASSIUM PROTOCOL 02/25/25 08:30 03/27/25 08:29 Potassium Chloride (K-Dur/Klor-Con 20meq) 10 meq AD PRN PO POTASSIUM PROTOCOL 02/25/25 08:30 03/27/25 08:29 Potassium Chloride (KCl 10% Elixir 20meq/15ml) 10 meq AD PRN PO POTASSIUM PROTOCOL 02/25/25 08:30 03/27/25 08:29 DIAGNOSTICS / RADIOLOGY: [ ] assessment; Right finger injury POA laceration finger 2nd digit POA dislocation of the right PIP joint of the right 2nd digit. POA s/p 02/25/25 exploration of wound open treatment of open fracture and tendon repair. right 2nd digit avulsion fracture of the PIP joint. POA PLAN: [ ] Admit: Medical-surgical floor condition: Fair Status: Full code IVF: NS at 75 mL/hour [facility] orthopedic surgery Diet Heart healthy test: strep b and influenza a/b today Antibiotics: Cefazolin1 g twice a day procedure s/p POD 1 exploration of wound open treatment of open fracture and tendon repair. will follow surgical recommendation on wound dressing Non weight bearing to right arm. ARM Sling Labs cbc, cmp, mag+ in am Replace electrolytes as needed as per protocol to keep potassium above 4.0 magnesium 2.0. Pain management: Tylenol No. 3 as needed for pain. Dilaudid for severe pain. Supportive measures: DVT ppx, GI ppx all questions answered Supervising MD: Dr. Shanks c/d ATTESTATION BY PHYSICIAN I have seen and examined the patient. I reviewed the documentation, medical decision making, and treatment plan as noted by the mid-level provider above. I agree with the findings and plan of care. ROQUE SHANKS MD, ELIZABETH NP Feb 26, 2025 11:14
[2025-02-26 12:25] LABS: INFLUENZA TYPE A Negative For Type A (NEGATIVE); INFLUENZA TYPE B Negative For Type B (NEGATIVE)
[2025-02-26] MEDS: teTANUS immUNE globULIN 250 UNIT SYRINGE IM ONE (12:28)
[2025-02-26 12:35] VITALS: BP 135/78; PULSE 69; RESP 18; TEMP 98.6
[2025-02-26] MEDS ORDERED: AMOX1TAB16 PO (12:43)
--- NOTE | 2025-02-26 13:50 | NUR ---
DCP: HOME Pt lives in mobile home alone. P is has 5 daughters. ER contact is daughter Vivian Pineda [phone]. Prior to hand injury, pt was independent, sates he as able to do his self care, home management and meal prep on his own. Pt uses no DME or in home care services. Desiree Chandra is PCP and uses [facility] for rx needs. Pt denies dc needs, has friend to transport home at mt and assist as needed. Addendum: 02/26/25 at 1351 by FLAVIO FOSTER Amended: Links added.
--- NOTE | 2025-02-26 16:16 | NUR ---
DISCHARGE PT PIV DC'D PT VERBALIZED UNDERSTANDING OF WOUND CARE DRESSING INSTRUCTIONS PT VERBALIZED UNDERSTANDING OF DISCHARGE INSTRUCTIONS PT HAD NO FURTHER QUESTIONS AT TIME OF DISCHARGE PT GATHERED AND TOOK ALL BELONGINGS
--- NOTE | 2025-02-26 19:53 | CONS ---
ORTHOPEDIC CONSULTATION CHIEF COMPLAINT: Right index finger pain, bleeding, and deformity. HISTORY OF PRESENT ILLNESS: This 74-year-old male states that he was working on his car last evening when he inadvertently got his finger hit by the fan of his radiator. He had pain and bleeding instantly. He was brought to the emergency room where he was diagnosed as having a fracture dislocation that was open of the PIP joint of his right index finger. The dislocation was reduced, but there is an avulsed fragment that remains, most likely from the proximal phalanx on the ulnar side of the joint and the dorsal side of the joint. The wound was scrubbed thoroughly with Betadine. The patient was placed in a splint. The patient was admitted and I was called for consultation. PAST MEDICAL HISTORY: The patient has history of hypertension and thyroid disease. He takes medicine for his hypertension. ALLERGIES: Otherwise, the patient has no known drug allergies. PHYSICAL EXAMINATION: GENERAL: He is a well-developed adult male appearing his stated age of 74 years. He is in moderate discomfort as he received Dilaudid prior to my arrival and became very nauseous and sweaty, and he complains that he has been n.p.o. since last night. EXTREMITIES: There is a dressing in place on his right hand, but has good capillary refill in the right index finger. IMAGING STUDIES: Radiographs show the above-mentioned dislocation volarly of the PIP joint with a fracture avulsion, most likely coming from the proximal phalanx. LABORATORY DATA: The patient's white count today is 6.2 with a hemoglobin of 13.2. Sodium 138, potassium 3.8, chloride of 103, and a blood sugar of 89. ASSESSMENT: Open fracture of the right index finger PIP joint. PLAN: We will take this patient urgently to the operating room for exploration, debridement, and open treatment of the fracture. TID: [id number] RECEIPT: [id number]
--- NOTE | 2025-02-26 21:01 | PN ---
PROGRESSIVE NOTE SUBJECTIVE: This is postop day 1 from ORIF of an open fracture of right index finger proximal phalanx and repair of the right index finger extensor tendon laceration as well as a simple laceration on the middle finger. The patient states he is feeling better, having less pain in his finger. The patient is sensory intact to the tip of the finger. His dressing is removed. The pins remain in place as do the stitches in his index and middle fingers. ASSESSMENT: Postoperative day 1 ORIF right index finger and repair of extensor tendon. PLAN: He is Ortho stable for discharge. I want to keep his wound clean and dry, and continue to use his aluminum foam splint holding his index finger in extension. We would like to see him in our office in approximately two weeks. He is to call for an appointment. TID: [id number] RECEIPT: [id number]
--- NOTE | 2025-02-26 21:17 | OP ---
DATE OF PROCEDURE: 02/25/2025 PREOPERATIVE DIAGNOSIS: Open fracture of the proximal phalanx of the right index finger and open fracture and laceration of the extensor tendon. POSTOPERATIVE DIAGNOSIS: Open fracture of the proximal phalanx of the right index finger and open fracture and laceration of the extensor tendon. PROCEDURES PERFORMED: Exploration, debridement, irrigation, open reduction and internal fixation of the proximal phalanx, and repair of the extensor tendon. SURGEON: Juvenal Munoz MD ANESTHESIA: General by DAT Davis REGISTERED RESPIRATORY TECHNICIAN: LYRIC Toledo ESTIMATED BLOOD LOSS: Less than 25 mL. SPECIMENS: None. COMPLICATIONS: None. INDICATIONS FOR PROCEDURE: This 74-year-old male was working in his car last night, inadvertently got his finger in the way of the fan blade and this injured his finger, had profuse bleeding, was brought to the Emergency Room where he was diagnosed having an open fracture and lacerated tendon of his right index finger. The wound was cleansed in the ER and a Betadine dressing applied and the patient was admitted. I was called for consultation. I recommended n.p.o. status and then to the operating room for urgent exploration and debridement of the indicated procedures, which he accepted. OPERATIVE COURSE: After informed consent, identification of the correct operative site in the preoperative holding area, the patient was taken to the operating suite and placed in supine position. General anesthetic was administered by DAT Davis. and the right upper extremity was prepped and draped in the usual sterile manner using Betadine scrub. After a timeout, we began exploring and noticed there was an avulsed fragment, which round up being the ulnar-sided condyle of the distal aspect of the proximal phalanx. We were able to reduce it and placed two 0.035 K-wires, one from dorsal and one from ulnar distal to radial proximal. This held the piece in good position. We then approximated the extensor tendon placing one modified Mina stitch and then over sewing it with 3-0 interrupted [id number] #3-0 nylon. We irrigated thoroughly with saline once again. We then closed the skin with interrupted horizontal mattress and simple 3-0 nylon sutures. We then cut and bent our K-wires and placed small plastic caps. We did a digital block with 0.5% Marcaine without epinephrine of the index finger. We then applied a clean, dry, sterile dressing to include Xeroform, 4 x 4's, Lyudmila, and an AlumaFoam splint holding his finger in mild extension. The drapes were removed, the patient was transported to the hospital bed, revived, and taken to the recovery room in satisfactory condition. All needle counts, sponge counts, instrument counts were correct. TID: [id number] RECEIPT: [id number]
== END 2025-02-26 17:23 | disposition home or self-care (01) ==
LOC: EDH 21:56 → EDHIP 02-25 04:55 → INTOOBSV 02-25 04:55 → 4DH 02-25 06:25
PROVIDERS: ADMIT Internal Medicine; ATTEND Internal Medicine
DX: S62.610B Displaced fracture of proximal phalanx of right index finger, initial encounter for open fracture (principal); S66.320A Laceration of extensor muscle, fascia and tendon of right index finger at wrist and hand level, initial encounter; I10 Essential (primary) hypertension; E07.9 Disorder of thyroid, unspecified; Z90.49 Acquired absence of other specified parts of digestive tract; Z98.890 Other specified postprocedural states; Z86.2 Personal history of diseases of the blood and blood-forming organs and certain disorders involving the immune mechanism; Z79.899 Other long term (current) drug therapy; W26.8XXA Contact with other sharp object(s), not elsewhere classified, initial encounter; Y93.89 Activity, other specified; Y92.89 Other specified places as the place of occurrence of the external cause; Y99.8 Other external cause status
CPT/HCPCS: 96375 ×2; 99285; 90714; 73140 ×3; 90471; 26735; 96376 ×2; 96365; 96366 ×3; 82435; 82947; 83735 ×2; 84132; 84295; 80053 ×2; 82803; 85025 ×3; 85610; 85730; 85018; 83605; 36415 ×2; 36600; 94640; 96372; 96368; 87880; 87804 ×2; 97161; 97116; J0690 ×4; C1713; J3490 ×5; J3010 ×3; J0330; J2270; J0665 ×3; J2250; J2704 ×2; J2405 ×3; J2919; J2710; J2371; J1171; A6445; A6223; A4649 ×2; A4930; G0378 ×6; J3475; J1670; 80048; 96374

== ENCOUNTER 2025-04-17 13:58 | Emergency (ER) | payer OTHER, MEDICARE ==
[~2025-04-17] VITALS: Ht 167.6 cm; Wt 50.3 kg
[~2025-04-17 13:58] MED LIST changes: +ACET-2079 PO; +AMOX1TAB16 PO
--- NOTE | 2025-04-17 14:31 | ERN ---
General Chief Complaint: Dizzy/Light Headed Stated Complaint: DIZZY X 3 DAYS Time Seen by MD: 14:04 Source: patient History of Present Illness Initial Comments Patient is a 74-year-old male coming in complaining of vertigo. Patient states that on he was out in the sun decided to drink a beer shortly after that started having vertigo. He went to sleep the found that he was okay and repeated to be out in the sun he states that he drank two beers and again he felt very dizzy. Patient states that he has been dizzy since then. Allergies: Coded Allergies: No Known Drug Allergies (Unverified Allergy, Unknown, 06/13/23) Home Meds Active Scripts Amoxicillin/Potassium Clav (Amox Tr-K Clv 875-125 mg Tab) 875 Mg-125 Mg Tablet, 1 TAB PO BID for 10 Days, #20 TAB 0 Refills Prov:LANIE CRUZ NP 02/26/25 Acetaminophen with Codeine (Acetaminophen-Cod #3 Tablet) 300 Mg-30 Mg Tablet, 1 TAB PO Q6HPRN PRN for pain for 7 Days, #10 TAB 0 Refills Prov:LANIE CRUZ NP 02/26/25 Diphenhydramine HCl (Benadryl) 25 Mg Cap, 25 MG PO QIDP for 10 Days, #40 CAP Prov:ELVIS PALACIOS MD 02/21/22 Past Medical History Past Medical History: Hypertension, Prostatitis, Other Medical History Other: THYROID DISEASE Past Surgical History: Appendectomy, Other Surgical History Other: HERNIA REPAIR Social History Social History: ETOH, Lives alone ROS Dictation CONSTITUTIONAL: No chills, no fever, no weakness, no diaphoresis, no malaise. HEAD/FACE: No signs of trauma. EENT: No eye pain, no blurred vision, no tearing, no double vision, no ear pain, no ear discharge, no nose pain, no nasal congestion, no throat pain, no throat swelling, no mouth pain. RESPIRATORY: No cough, no orthopnea, no SOB, no stridor, no wheezing. CARDIOVASCULAR: No chest pain, no edema, no palpitations, no syncope. GASTROINTESTINAL/ABDOMINAL: No abdominal pain, no constipation, no diarrhea, no nausea, no vomiting. GENITOURINARY: No abnormal discharge, no dysuria, no frequent urination, no hematuria. No complaints of pain in the genitals. MUSCULOSKELETAL: No back pain, no gout, no joint pain, no joint swelling, no muscle pain, no muscle stiffness, no neck pain. INTEGUMENTARY: No change in color, no change in hair/nails, no dryness, no lesion, no lumps, no rash. NEUROLOGICAL/PSYCH: No anxiety, not depressed, no emotional problem, no headache, no numbness, no pre-existing deficit, no history of seizures, no tremors, no weakness. HEMATOLOGIC/LYMPHATIC: Not anemic, no history of blood clots, no apparent bleeding, no bruising, glands not swollen. All Systems Negative, Except as Noted. Physical Exam Physical Exam Dictation VITAL SIGNS: Reviewed. GENERAL APPEARANCE: Alert, oriented x3, no acute distress, obese. HEAD AND FACE: Non-traumatic. EYES: PERRL, pink conjunctivas, eyelid no trauma, anterior chamber clear. EARS: Pinnas intact and no signs of trauma or erythema. Ear canals clear and no discharge. TMs no erythema. NOSE: No discharge, no bleeding. OROPHARYNX: Mouth normal, teeth no caries, tongue pink. Pharynx clear, no erythema. Tonsils no exudates, no abscesses noted. Mucous membrane moist. NECK: Supple, non-tender, no thyromegaly, no masses, no JVD, no bruits. BREAST: Deferred. CHEST: No tenderness, no crepitus, no paradoxical movement, no retractions. LUNGS: Clear, well-ventilated, symmetric, no rales, no wheezing, no rhonchi, no stridor, good breath sounds bilaterally. HEART: Regular rate, regular rhythm, no murmur, no gallops. VASCULAR: No peripheral edema. ABDOMEN: Soft, positive bowel sounds, nondistended, no guarding, nontender, no rebound, no masses no hepatomegaly, no splenomegaly, no Yepez's sign, no hernias. RECTAL: Deferred. GENITAL: Deferred. NEUROLOGICAL: Normal speech, gross motor function intact, gross sensory function intact. MUSCULOSKELETAL: Neck nontender, full range of motion, back nontender, full range of motion. EXTREMITIES: Nontender, full range of motion. SKIN: Color pink, dry, no turgor, no rash, no lacerations, no abrasions, no contusions. LYMPHATICS: Deferred. Results Laboratory and Microbiology Lab and Micro Result Laboratory Tests Test 04/17/25 14:30 04/17/25 15:48 White Blood Count 5.3 K/uL (4.8-10.8) Red Blood Count 4.21 MIL/uL (4.50-6.20) L Hemoglobin 12.7 g/dL (14.0-18.0) L Hematocrit 38.8 % (42-54) L Mean Corpuscular Volume 92.2 fL (79-99) Mean Corpuscular Hemoglobin 30.2 pg (27.0-33.0) Mean Corpuscular Hemoglobin Concent 32.7 g/dL (32.0-36.0) Red Cell Distribution Width 12.3 % (11.0-15.5) Platelet Count 205 K/uL (130-400) Mean Platelet Volume 10.0 fL (7.5-10.5) Immature Granulocyte % (Auto) 0.4 % (0-1) Neutrophils (%) (Auto) 69.5 % (40.0-77.0) Lymphocytes (%) (Auto) 22.5 % (21.0-51.0) Monocytes (%) (Auto) 6.6 % (3.0-13.0) Eosinophils (%) (Auto) 0.8 % (0.0-8.0) Basophils (%) (Auto) 0.2 % (0.0-5.0) Neutrophils # (Auto) 3.7 K/uL (1.8-7.7) Lymphocytes # (Auto) 1.2 K/uL (1.0-4.8) Monocytes # (Auto) 0.4 K/uL (0.1-1.0) Eosinophils # (Auto) 0.04 K/uL (0.00-0.70) Basophils # (Auto) 0.01 K/uL (0.00-0.20) Absolute Immature Granulocyte (auto 0.02 K/uL (0-1) Nucleated Red Blood Cells 0.0 % (0.0-0.19) Sodium Level 139 mmol/L (136-145) Potassium Level 3.9 mmol/L (3.5-5.1) Chloride Level 104 mmol/L (101-111) Carbon Dioxide Level 29 mmol/L (21-32) Blood Urea Nitrogen 17 mg/dL (7-18) Creatinine 0.5 mg/dL (0.5-1.3) Glomerular Filtration Rate Calc 106 mL/min (>90) Random Glucose 95 mg/dL (70-105) Total Calcium 8.3 mg/dL (8.5-10.1) L Magnesium Level 1.70 mg/dL (1.80-2.40) L Total Creatine Kinase 31 U/L (21-232) Troponin I High Sensitivity 8 ng/L (4-75) Influenza Type A Antigen Negative For Type A Influenza Type B Antigen Negative For Type B SARS-CoV-2, RNA, NAAT POSITIVE SARS CoV-2 Urine Color LIGHT-YELLOW (YELLOW) Urine Appearance CLEAR (CLEAR) Urine pH 7.0 (5.0-8.0) Urine Specific [place] 1.016 (1.001-1.031) Urine Protein NEGATIVE mg/dL (NEGATIVE) Urine Glucose (UA) NEGATIVE mg/dL (NEGATIVE) Urine Ketones 10 mg/dL (NEGATIVE) H Urine Occult Blood NEGATIVE (NEGATIVE) Urine Nitrate NEGATIVE (NEGATIVE) Urine Bilirubin NEGATIVE mg/dL (NEGATIVE) Urine Urobilinogen 0.2 mg/dL (0.2-1.0) Urine Leukocyte Esterase NEGATIVE [place]/uL Urine RBC 2-5 /HPF (0-1) H Urine WBC 0-1 /HPF (0-1) Urine Bacteria None /HPF (None Seen) Labs Reviewed?: Yes EKG/XRAY/US/CT/MRI EKG Comment 04/17/2025 time 2:00 p.m. Ventricular rate 58 Sinus rhythm [place] [address] wave elevation or depression X-RAY Comment IMAGING REPORT Signed PATIENT: JANIE CRAWFORD MR#: [id number] : 1950 SEX: M AGE: 74 LOCATION: [facility] ORDER 26 STATUS: REG REPORT#: [id number] SERVICE 25 REASON: weakness ORDERING PHYSICIAN: SHILA TALLEY MD PROCEDURE: CXR1VW - CHEST 1VW EXAM: CR Chest, 1 View. CLINICAL HISTORY: weakness COMPARISON: None provided. FINDINGS: LUNGS: The lungs show no infiltrate or other acute finding. PLEURAL SPACES: No evidence of pleural effusion or pneumothorax. MEDIASTINUM: Cardiac size and mediastinal contours within normal limits. BONES: No acute osseous abnormality. IMPRESSION: No acute cardiopulmonary pathology is evident. /[place] DICTATED BY: KATELIN TOLBERT Jr., MD DATE: 04/17/251614 ELECTRONICALLY SIGNED BY: KATELIN TOLBERT Jr., MD DATE: 04/17/251614 MDM MDM: Differential diagnosis: COVID, dehydration, Rationale: Tests considered and ordered secondary to shared decision making include: Previous outside records reviewed: Old ER visits. Risk of complication and/or morbidity or mortality of patient management: None Medications-Per medication reconciliation Need for hospitalization: Patient does not meet criteria for hospitalization. Need for emergency major/minor surgery: No Patient is a 74-year-old gentleman coming in complaining of generalized body weakness and vertigo. Laboratory workup positive for COVID-19. Patient will be discharged in stable condition with a diagnosis of COVID-19 patient was hydrated with IV fluids IV steroids we will be discharged in stable condition ED Course Orders Procedure Category Date Status Time Cbc With Differential LAB 04/17/25 Complete 14:26 Chest 1vw RAD 04/17/25 Resulted 14:26 0.9%Nacl 1000ml (Ns PHA 04/17/25 Complete 1000ml) 14:30 Magnesium LAB 04/17/25 Complete 14:26 Creatine Kinase, Total LAB 04/17/25 Complete 14:26 Troponin I High LAB 04/17/25 Complete Sensitivity 14:26 Urinalysis Profile LAB 04/17/25 Complete 14:26 Basic Metabolic Panel LAB 04/17/25 Complete 14:26 Covid Rna Naat LAB 04/17/25 Complete 14:26 Influenza Type A & B, LAB 04/17/25 Complete Rapid 14:26 Magnesium 2gm Premix PHA 04/17/25 In Process 50ml (Magnesium 2gm 16:00 Current Medications Medications (Trade) Dose Ordered Sig/Patrica Route PRN Reason Start Time Stop Time Status Last Admin Dose Admin Magnesium Sulfate 50 ml @ 0 mls/hr PROTOCOL IV 04/17/25 16:00 05/17/25 15:59 Sodium Chloride 1,000 ml @ 0 mls/hr ONCE ONCE IV 04/17/25 14:30 04/17/25 14:31 DC 04/17/25 14:39 Vital Signs Date Time Temp Pulse Resp B/P (MAP) Pulse Ox O2 Delivery O2 Flow Rate FiO2 04/17/25 14:24 66 18 160/95 98 Room Air* 0 21 04/17/25 14:00 97.9 62 16 166/85 98 Room Air 0 DX & DISP Disposition: Discharge Departure Impression: Primary Impression: COVID-19 Additional Impression: Dehydration Condition: Stable Additional Instructions: FOLLOW-UP WITH PRIMARY CARE PROVIDER IN 1 TO 2 DAYS. TAKE MEDICATIONS DIRECTED HERE IN THE EMERGENCY ROOM. OKAY TO CONTINUE HOME MEDICATIONS UNLESS OTHERWISE DISCUSSED DURING YOUR VISIT IN THE EMERGENCY ROOM TODAY. RETURN TO YOUR NEAREST EMERGENCY ROOM IF SYMPTOMS WORSEN OR IF THERE IS NO IMPROVEMENT. CALL 911 IF YOU NEED IMMEDIATE ASSISTANCE. TAKE TYLENOL [id number] NEEDED AND IF NO CONTRAINDICATIONS ARE PRESENT. INCREASE ORAL HYDRATION. A WOUND CULTURE OR URINE CULTURE WAS ORDERED HERE IN THE EMERGENCY ROOM DEPARTMENT PLEASE FOLLOW-UP WITH PRIMARY CARE PROVIDER AND ADVISE THEM TO GET REPORTS FROM OUR FACILITY. IF YOU HAD ANY HILDA WRAP/SPLINTS THAT WERE APPLIED HERE, PLEASE DO NOT REMOVE THEM UNTIL YOU SEE YOUR PRIMARY CARE OR SPECIALTY. Referrals: Referrals: LETICIA DISLA MD (PCP) Time of Disposition: 16:31 SHILA TALLEY MD Apr 17, 2025 14:31
[2025-04-17] MEDS: 0.9%NACL 1000ML 1,000 ML IV ONE (14:39)
[2025-04-17 14:52] LABS: IMMATURE GRANULOCYTE ABSOLUTE 0.02 K/uL (0-1); NUCLEATED RED BLOOD CELLS 0.0 % (0.0-0.19); PLATELET COUNT (AUTO) 205 K/uL (130-400); RED BLOOD CELL COUNT(AUTO) 4.21 MIL/uL (4.50-6.20); RED CELL DISTRIBUTION WIDTH 12.3 % (11.0-15.5); WHITE BLOOD COUNT (AUTO) 5.3 K/uL (4.8-10.8)
[2025-04-17 14:58] LABS: CREATININE 0.5 mg/dL (0.5-1.3); GLOMERULAR FILTR. RATE CALC 106.0 mL/min (>90); GLUCOSE,RANDOM 95.0 mg/dL (70-105); SODIUM SERUM 139.0 mmol/L (136-145); UREA NITROGEN, BLOOD 17.0 mg/dL (7-18)
[2025-04-17 15:03] LABS: SARS-CoV-2, RNA, NAAT POSITIVE SARS CoV-2 (NEGATIVE)
[2025-04-17 15:07] LABS: CREATINE KINASE, TOTAL 31.0 U/L (21-232)
[2025-04-17 15:09] LABS: INFLUENZA TYPE A Negative For Type A (NEGATIVE); INFLUENZA TYPE B Negative For Type B (NEGATIVE)
--- NOTE | 2025-04-17 15:16 | HMCIMG ---
EXAM: CR Chest, 1 View. CLINICAL HISTORY: weakness COMPARISON: None provided. FINDINGS: LUNGS: The lungs show no infiltrate or other acute finding. PLEURAL SPACES: No evidence of pleural effusion or pneumothorax. MEDIASTINUM: Cardiac size and mediastinal contours within normal limits. BONES: No acute osseous abnormality. IMPRESSION: No acute cardiopulmonary pathology is evident. /[place]
[2025-04-17 16:04] LABS: APPEARANCE,URINE CLEAR (CLEAR); GLUCOSE, URINE (UA) NEGATIVE (NEGATIVE); LEUKOCYTE ESTERASE ,URINE NEGATIVE Leu/uL (NEGATIVE); NITRATE,URINE NEGATIVE (NEGATIVE); OCCULT BLOOD,URINE NEGATIVE (NEGATIVE)
[2025-04-17 16:06] LABS: ADD UA MICROSCOPIC YES
[2025-04-17] MEDS: MAGNESIUM 2GM PREMIX 50ML 50 ML IV SCH (16:43)
[2025-04-17 17:33] VITALS: BP 132/69; PULSE 59; RESP 18; TEMP 97.9; O2SAT 98
--- NOTE | 2025-04-18 08:17 | EKG ---
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
== END 2025-04-17 17:33 | disposition home or self-care (01) ==
LOC: EDH 13:58
DX: U07.1 COVID-19 (principal); E86.0 Dehydration; I10 Essential (primary) hypertension; Z90.49 Acquired absence of other specified parts of digestive tract; Z98.890 Other specified postprocedural states
CPT/HCPCS: 99285; 96374; 71045; 87635; 96375; 82550; 83735; 84484; 80048; 85025; 87804 ×2; 81001; 36415; 93005; J1100; J3475; J7030; 99284